=== PATIENT | male | born 1945 | race Caucasian/White ===

== ENCOUNTER 2022-06-13 08:57 | Day surgery (SDC) | payer OTHER ==
[2022-06-12 11:29] VITALS: BP 178/99
[2022-06-12 11:35] LABS: BASOPHILS % (AUTO) 1.1 % (0.0-5.0); EOSINOPHILS % (AUTO) 6.9 % (0.0-8.0); HEMATOCRIT 49.8 % (42-54); LYMPHOCYTES % (AUTO) 15.6 % (21.0-51.0); MEAN CORPUSCULAR HEMOGLOBIN 27.8 pg (27.0-33.0); MEAN CORPUSCULAR HGB CONC 32.1 g/dL (32.0-36.0); MEAN CORPUSCULAR VOLUME 86.6 fL (79-99); MONOCYTES % (AUTO) 9.9 % (3.0-13.0); PLATELET COUNT (AUTO) 186 K/uL (130-400); RED BLOOD CELL COUNT(AUTO) 5.75 MIL/uL (4.50-6.20); RED CELL DISTRIBUTION WIDTH 15.1 % (11.0-15.5); WHITE BLOOD COUNT (AUTO) 5.6 K/uL (4.8-10.8)
[2022-06-12 11:42] LABS: CREATININE 2.2 mg/dL (0.5-1.5); POTASSIUM 5.9 mmol/L (3.5-5.1)
[2022-06-12 12:44] LABS: INR 1.05 (0.85-1.15); PROTHROMBIN TIME 11.4 SEC (9.6-11.6)
[2022-06-12 12:45] LABS: PARTIAL THROMBOPLASTIN TIME 32.6 SEC (26.3-35.5)
[2022-06-13] VITALS (8 sets, daily range): BP systolic 94–179; BP diastolic 56–103
[~2022-06-13] VITALS: Ht 190.5 cm; Wt 117.0 kg
[~2022-06-13 08:57] MED LIST: AMIO200T68 PO; APIX5TAB PO; ATOR10 PO; FURO20TA4 PO; LORA10TA7 PO; LOSA25TA41 PO; METO50TA18 PO; ZINC220T4 PO
[2022-06-13 10:11] LABS: POTASSIUM 4.9 mmol/L (3.5-5.1)
[2022-06-13] MEDS ORDERED: PROPOFOL 10 MG/ML 20ML VIAL IV ONE (10:25)
[2022-06-13] MEDS ORDERED: LIDOCAINE HCL 2% VISCOUS 15 ML UDCUP ONE (10:30)
== END 2022-06-13 11:52 | disposition home or self-care (01) ==
LOC: DAH 08:57 → EDSTATUS 09:30 → DAH 11:52
PROVIDERS: ATTEND Student in an Organized Health Care Education/Training Program
DX: I48.91 Unspecified atrial fibrillation (principal); Z20.822 Contact with and (suspected) exposure to COVID-19; I08.1 Rheumatic disorders of both mitral and tricuspid valves; I48.92 Unspecified atrial flutter; I12.9 Hypertensive chronic kidney disease with stage 1 through stage 4 chronic kidney disease, or unspecified chronic kidney disease; N18.9 Chronic kidney disease, unspecified; E66.9 Obesity, unspecified; E78.5 Hyperlipidemia, unspecified; Z86.16 Personal history of COVID-19; Z72.89 Other problems related to lifestyle; Z87.891 Personal history of nicotine dependence; Z79.01 Long term (current) use of anticoagulants; Z68.33 Body mass index [BMI] 33.0-33.9, adult
CPT/HCPCS: 80048 ×2; 85025; 85610; 85730; 87426; 36415 ×2; 92960; 93325; 93312; 93005 ×2; A4223 ×3; J2704; A4215; A7002; A4222; A4221; A4663; A4216; A4606; 96374; 99156; 99157